=== PATIENT | male | born 1960 | race Caucasian/White ===

== ENCOUNTER 2019-03-24 14:46 | Emergency (ER) | payer MEDICAID ==
[2019-03-24 15:12] LABS: BASOPHILS 0.1 % (0-2); EOSINOPHILS 0.3 % (0-7); HEMATOCRIT 44.3 % (42.0-54.0); HEMOGLOBIN 15.5 g/dL (13.5-17.5); IMMATURE GRANULOCYTES 0.3 % (0-5); LYMPHOCYTES 7.9 % (15-50); MCV 97.1 fL (80.0-100.0); MEAN PLATELET VOLUME 9.5 fL (7.4-10.4); NEUTROPHILS 84.4 % (40-80); PLATELET COUNT 216 10x3/uL (130-400); RBC 4.56 10x6/uL (4.20-6.10); RDW 12.5 % (11.5-14.5); WBC 15.5 10x3/uL (4.8-10.8)
[2019-03-24 15:20] LABS: APTT 28.5 SECONDS (22.8-39.4); INR 1.02 (0.85-1.17); PROTIME 12.9 SECONDS (11.6-15.0)
[2019-03-24 15:28] LABS: ALBUMIN 3.8 g/dL (3.4-5.0); ALKALINE PHOSPHATASE 81 U/L (46-116); ALT (SGPT) 64 U/L (10-68); CALC OSMOLALITY 269 mosm/kg (275-300); CALCIUM 8.7 mg/dL (8.5-10.1); CARBON DIOXIDE 25.5 mmol/L (21.0-32.0); CHLORIDE - SERUM 100 mmol/L (98-107); GLUCOSE 94 mg/dL (74-106); POTASSIUM - SERUM 3.4 mmol/L (3.5-5.1); PROTEIN - SERUM 6.9 g/dL (6.4-8.2); SODIUM 136 mmol/L (136-145); UREA NITROGEN 8 mg/dL (7-18); eGFR NON AFRICAN AMERICAN 82 mL/min (90-120)
[2019-03-24 15:41] LABS: CKMB 4.9 U/L (0.0-3.6); CREATINE KINASE 318 UL (21-232); MAGNESIUM - SERUM 1.7 mg/dL (1.8-2.4)
[2019-03-24 15:43] LABS: TROPONIN-I < 0.017 ng/mL (0.000-0.060)
[2019-03-24] MEDS ORDERED: VIBRAMYCIN 100100 MG PO (19:26)
[2019-03-24] MEDS ORDERED: ALBUTEROL SULF8.5 GM INH (19:28)
[2019-03-24 19:55] VITALS: BP 133/82
== END 2019-03-24 19:55 | disposition home or self-care (01) ==
LOC: D.ER 14:46
PROVIDERS: Family Medicine
DX: R07.9 Chest pain, unspecified (principal)